=== PATIENT | female | born 1950 | race Caucasian/White ===

== ENCOUNTER 2017-10-30 09:53 | Outpatient (REF) | payer OTHER, SELFPAY ==
[2017-10-30 19:34] LABS: Anion Gap 6.1 mmol/L (3-11); BUN 12 mg/dL (7-18); CO2 29.9 mmol/L (21.0-32.0); CREATININE 0.71 mg/dL (0.55-1.02); Chloride 104 mmol/L (98-107); Glucose 84 mg/dL (70-100); Potassium 4.3 mmol/L (3.5-5.1); Sodium 140 mmol/L (136-145); TSH 5.98 uIU/mL (0.358-3.74)
== END 2017-10-30 09:54 ==
LOC: NCHCN 09:53
PROVIDERS: PCP Physician Assistant Medical; Visit Provider Physician Assistant Medical
DX: I10 Essential (primary) hypertension (principal); E03.9 Hypothyroidism, unspecified
CPT/HCPCS: 80048; 84443

== ENCOUNTER 2017-12-11 14:23 | Outpatient (REF) | payer OTHER, SELFPAY ==
[2017-12-11 20:00] LABS: TSH 0.86 uIU/mL (0.358-3.74)
== END 2017-12-11 14:43 ==
LOC: NCHCN 14:23
PROVIDERS: PCP Physician Assistant Medical; Visit Provider Physician Assistant Medical
DX: E03.9 Hypothyroidism, unspecified (principal)
CPT/HCPCS: 84443

== ENCOUNTER 2018-12-02 10:27 | Outpatient (REF) | payer OTHER, SELFPAY ==
[2018-12-02 20:18] LABS: Anion Gap 7.1 mmol/L (3-11); BUN 19 mg/dL (7-18); CO2 27.9 mmol/L (21.0-32.0); Calcium 9.2 mg/dL (8.5-10.1); Calculated LDL 64 mg/dL; Chloride 104 mmol/L (98-107); Cholesterol 142 mg/dL (50-200); Glucose 91 mg/dL (70-100); HDL Cholesterol 72 mg/dL (40-60); Potassium 4.7 mmol/L (3.5-5.1); Sodium 139 mmol/L (136-145); TSH 0.17 uIU/mL (0.36-3.74); Triglyceride 32 mg/dL (30-150)
== END 2018-12-02 10:47 ==
LOC: NCHCN 10:27
PROVIDERS: PCP Physician Assistant Medical; Visit Provider Nurse Practitioner Family
DX: E03.9 Hypothyroidism, unspecified (principal); I10 Essential (primary) hypertension; Z13.6 Encounter for screening for cardiovascular disorders
CPT/HCPCS: 80048; 80061; 84443

== ENCOUNTER 2018-12-03 08:54 | Outpatient (REF) | payer OTHER, SELFPAY ==
[2018-12-10 13:10] LABS: Helicobacter pylori Ag, Feces Negative (NEGAT)
== END 2018-12-03 09:14 ==
LOC: NCHCN 08:54
PROVIDERS: PCP Nurse Practitioner Family; Visit Provider Nurse Practitioner Family
DX: R10.9 Unspecified abdominal pain (principal)
CPT/HCPCS: 87338

== ENCOUNTER 2020-01-07 15:05 | Outpatient (REF) | payer OTHER, SELFPAY ==
[2020-01-07 22:46] LABS: Anion Gap 8.4 mmol/L (3-11); BUN 26 mg/dL (7-18); CO2 27.6 mmol/L (21.0-32.0); CREATININE 0.69 mg/dL (0.55-1.02); Calcium 9.7 mg/dL (8.5-10.1); Chloride 106 mmol/L (98-107); Glucose 88 mg/dL (74-106); Potassium 4.1 mmol/L (3.5-5.1); Sodium 142 mmol/L (136-145); TSH 3.67 uIU/mL (0.36-3.74)
== END 2020-01-07 15:25 ==
LOC: NCHCN 15:05
PROVIDERS: PCP Nurse Practitioner Family; Visit Provider Nurse Practitioner Family
DX: E03.9 Hypothyroidism, unspecified (principal); I10 Essential (primary) hypertension
CPT/HCPCS: 80048; 84443

== ENCOUNTER 2020-01-23 03:43 | Outpatient (CLI) | payer OTHER, SELFPAY ==
--- NOTE | 2020-01-23 | DI.RAD_ITS ---
EXAM: XR KNEE RT 3V AP,LAT,LOWELL CLINICAL HISTORY: RT KNEE PAIN,M25.569 TECHNIQUE: COMPARISON: CR XR KNEE LT 3V AP,LAT,LOWELL from 01/23/2020 FINDINGS: Three views were obtained. There is severe narrowing of the medial tibiofemoral cartilaginous joint space. Mild marginal osteophyte formation is noted at multiple sites. There is an osteophyte or loo se body projected anteriorly on the lateral view. No other significant bony abnormality seen. IMPRESSION: Degenerative changes most marked involving medial tibiofemoral joint. RADIATION DOSE DELIVERED: Total DLP
--- NOTE | 2020-01-23 | DI.RAD_ITS ---
EXAM: XR KNEE LT 3V AP,LAT,LOWELL CLINICAL HISTORY: LT KNEE PAIN,M25.569 TECHNIQUE: COMPARISON: No exams were available for comparison FINDINGS: Three views were obtained. There is severe narrowing of the medial tibiofemoral cartilaginous joint space with medial subluxation femur tibia. The subchondral bones show mild sclerosis. There is mild marginal osteophyte formation involving the joints of the knee. IMPRESSION: DJD predominantly involving medial tibiofemoral joint. RADIATION DOSE DELIVERED: Total DLP
== END 2020-01-23 04:03 ==
PROVIDERS: PCP Nurse Practitioner Family; Visit Provider Nurse Practitioner Family
DX: M25.562 Pain in left knee (principal); M25.561 Pain in right knee; M17.0 Bilateral primary osteoarthritis of knee
CPT/HCPCS: 73562

== ENCOUNTER → 2020-02-12 09:16 | Outpatient (BNVA) | payer OTHER, SELFPAY | PROVIDERS: PCP Nurse Practitioner Family; Referring Provider Nurse Practitioner Family; Visit Provider Student in an Organized Health Care Education/Training Program | DX: M17.12 Unilateral primary osteoarthritis, left knee (principal); M17.11 Unilateral primary osteoarthritis, right knee | CPT/HCPCS: 99203 ==

== ENCOUNTER → 2020-04-15 09:42 | Outpatient (BNVA) | payer OTHER, SELFPAY | PROVIDERS: PCP Nurse Practitioner Family; Referring Provider Nurse Practitioner Family; Visit Provider Student in an Organized Health Care Education/Training Program | DX: M17.11 Unilateral primary osteoarthritis, right knee (principal); M17.12 Unilateral primary osteoarthritis, left knee | CPT/HCPCS: 99214 ==

== ENCOUNTER 2020-07-26 11:39 | Outpatient (REF) | payer OTHER, SELFPAY ==
[2020-07-26 20:07] LABS: ALT 31 U/L (14-59); AST 11 U/L (15-37); Albumin 3.6 g/dL (3.4-5.0); Alkaline Phosphatase 68 U/L (46-116); Anion Gap 6.9 mmol/L (3-11); BUN 23 mg/dL (7-18); Bilirubin, Total 0.3 mg/dL (0.2-1.0); CO2 30.1 mmol/L (21.0-32.0); Chloride 107 mmol/L (98-107); Estimated GFR 54.81 (mL/min/1.73m2); Glucose 87 mg/dL (74-106); Potassium 4.4 mmol/L (3.5-5.1); Sodium 144 mmol/L (136-145); TSH (W/Ref FT4) 0.41 uIU/mL (0.36-3.74); Total Protein 6.3 g/dL (6.4-8.2)
== END 2020-07-26 11:40 | disposition home or self-care (01) ==
LOC: NCHCN 11:39
PROVIDERS: PCP Nurse Practitioner Family; Visit Provider Nurse Practitioner Family
DX: I10 Essential (primary) hypertension (principal); E03.9 Hypothyroidism, unspecified
CPT/HCPCS: 80053; 84443

== ENCOUNTER 2021-09-07 21:12 | Outpatient (REF) | payer OTHER, SELFPAY ==
[2021-09-07 21:48] LABS: Anion Gap 5.3 mmol/L (3-11); BUN 23 mg/dL (7-18); CO2 28.7 mmol/L (21.0-32.0); CREATININE 0.7 mg/dL (0.55-1.02); Calcium 8.8 mg/dL (8.5-10.1); Chloride 108 mmol/L (98-107); Glucose 94 mg/dL (74-106); Sodium 142 mmol/L (136-145); TSH (W/Ref FT4) 0.03 uIU/mL (0.36-3.74)
[2021-09-07 22:08] LABS: FREE T4 1.58 ng/dL (0.76-1.46)
== END 2021-09-07 21:13 | disposition home or self-care (01) ==
LOC: NCHCN 21:12
PROVIDERS: PCP Nurse Practitioner Family; Visit Provider Physician Assistant
DX: I10 Essential (primary) hypertension (principal); E03.9 Hypothyroidism, unspecified
CPT/HCPCS: 80048; 84439; 84443

== ENCOUNTER 2022-09-05 11:18 | Outpatient (REF) | payer MEDICARE, SELFPAY ==
[2022-09-05 19:30] LABS: HCT 36.9 % (36.0-46.0); MCH 29.9 pg (27.0-33.0); MCHC 32.5 % (32.0-36.0); MCV 92 fL (80-95); MPV 9.7 fL (8.0-11.0); Platelet Count 336 10^3/uL (130-400); RBC 4.02 10^6/uL (3.93-5.22); RDW 13.2 % (11.7-14.6); RDW-SD 44.6 fL; WBC 4.91 10^3/uL (4.4-10.8)
[2022-09-05 19:47] LABS: Hemoglobin A1C 5.6 % (<5.7)
[2022-09-05 20:04] LABS: Vitamin D 25 Total 25.4 ng/mL (30-100)
[2022-09-05 20:07] LABS: ALT 20 U/L (14-59); AST 8 U/L (15-37); Albumin 3.4 g/dL (3.4-5.0); Alkaline Phosphatase 78 U/L (46-116); Anion Gap 7.3 mmol/L (3-11); BUN 22 mg/dL (7-18); Bilirubin, Total 0.5 mg/dL (0.2-1.0); CO2 28.7 mmol/L (21.0-32.0); CREATININE 0.8 mg/dL (0.55-1.02); Calcium 9.1 mg/dL (8.5-10.1); Chloride 107 mmol/L (98-107); Cholesterol 170 mg/dL (<200); Estimated GFR 78.24 (mL/min/1.73m2); Glucose 91 mg/dL (74-106); HDL Cholesterol 86 mg/dL (40-60); Potassium 4.3 mmol/L (3.5-5.1); Sodium 143 mmol/L (136-145); Total Protein 6.3 g/dL (6.4-8.2); Vitamin B12 261 pg/mL (193-986)
[2022-09-05 20:24] LABS: Calculated LDL 79 mg/dL (<100); Triglyceride 26 mg/dL (<150)
== END 2022-09-05 11:19 | disposition home or self-care (01) ==
LOC: NCHCN 11:18
PROVIDERS: PCP Nurse Practitioner Family; Visit Provider Physician Assistant
DX: I12.0 Hypertensive chronic kidney disease with stage 5 chronic kidney disease or end stage renal disease (principal); Z68.39 Body mass index [BMI] 39.0-39.9, adult; I10 Essential (primary) hypertension; E03.9 Hypothyroidism, unspecified; M85.80 Other specified disorders of bone density and structure, unspecified site; Z98.84 Bariatric surgery status
CPT/HCPCS: 80053; 80061; 82306; 85027; 82607; 83036

== ENCOUNTER 2023-03-06 09:04 | Outpatient (REF) | payer MEDICARE, SELFPAY ==
--- OUTSIDE RECORDS SUMMARY | 2023-03-06 09:07 | XMS_ITS | Continuity of Care Document ---
Author Name Unknown Organization [facility] Address [address] [place] [address] Care Team Providers Care Stretching Machine Operator Name Role Phone Lisa Lau Primary Care Physician Encounter [facility] Date(s): 08/10/22 - 08/10/[address] [address] Discharge Disposition: Home or Self Care Attending Physician: Lisa Lau PA-C Admitting Physician: Lisa Lau PA-C Referring Physician: Lisa Lau PA-C Allergies, Adverse Reactions, Alerts Substance Reaction Severity Status povidone iodine topical Unknown Acti ve metroNIDAZOLE Urticaria Severe Active Immunizations Given and Recorded Vaccine Date Status Refusal Reason SARS-CoV-2 (COVID-19) mRNA-1273 vaccine 01/31/21 R ecorded SARS-CoV-2 (COVID-19) mRNA-1273 vaccine 07/05/20 R ecorded SARS-CoV-2 (COVID-19) mRNA-1273 vaccine 06/06/20 R ecorded Results Laboratory List Name Date Thyroid Stimulating Hormone 08/10/22 Most recent to oldest [Reference Range]: 1 TSH [0.358-3.740 mcIntlUnit/mL] 1.613 mc IntlUnit/mL (08/10/22 8:12 AM) Social History Social History Type Response Sex Female Patient Care team information Care Team Personnel Name: Lisa Lau PA-C Position: PowerChart View Only Member Role: Primary Care Physician Address: Address: [facility] [address], [place] [id number] [place] [address] Care Team Related Persons Name: SANDHYA LIMA
--- OUTSIDE RECORDS SUMMARY | 2023-03-06 09:07 | XMS_ITS | CCD ---
Author Name Unknown Address [address] [place] [address] [id number] Organization Unknown Address [address] [place] [address] [phone] Care Team Providers Care Senior Branch Manager Name Role Phone HÉCTOR JENKINS Attending Physician [phone] HÉCTOR JENKINS Rounding (Secondary) Physician [phone] Vital Signs Unknown or Not Available. Allergies Unknown or Not Available. Procedures Unknown or Not Available. History of Immunizations Unknown or Not Available. Problems Unknown or Not Available. Results Unknown or Not Available. Active Medications Unknown or Not Available. Medications Administered During Visit Unknown or Not Available. Encounters Encounter Diagnosis Diagnosis Code Start Date Idiopathic osteoarthritis [id number] 2022 Social History Unknown or Not Available. Patient Decision Aids Unknown or Not Available. Discharge Instructions You were admitted to [facility] on 08/08/2022 00:00 with a principal diagnosis of Bilateral primary osteoarthritis of knee You were discharged from [facility] on 08/08/2022 00:00 Should you have any questions prior to discharge, please contact a member of your healthcare team. If you have left the hospital and have any questions, please contact your primary care physician. Chief Complaint and Reason For Visit Unknown or Not Available. Function Status Unknown or Not Available. Plan of Care Unknown or Not Available. Referral/Transition of Care Unknown or Not Available.
--- OUTSIDE RECORDS SUMMARY | 2023-03-06 09:07 | XMS_ITS | Continuity of Care Document ---
Author Name Unknown Organization [facility] Address [address] [place] [address] Care Team Providers Care Director Adult Name Role Phone Lisa Lau Primary Care Physician Encounter [facility] Date(s): 04/21/22 - 04/21/[address] [address] Discharge Disposition: Home or Self Care Attending [...] SARS-CoV-2 (COVID-19) mRNA-1273 vaccine 06/06/20 R ecorded Social History Social History Type Response Sex Female Patient Care team information Personnel Name: Lisa Lau PA-C Address: Address: [address] [address]- [place]
--- OUTSIDE RECORDS SUMMARY | 2023-03-06 09:07 | XMS_ITS | Continuity of Care Document ---
Author Name Unknown Organization [facility] Address [address] [place] [address] Care Team Providers Care Premises Technician Name Role Phone Lisa Lau Primary Care Physician Encounter [facility] Date(s): 12/29/21 - 12/29/[address] [address] Discharge Disposition: Home or Self Care Attending Physician: Lisa Lau Admitting Physician: Lisa Lau Referring Physician: Lisa Lau Allergies, Adverse Reactions, Alerts Substance Reaction Severity Status povidone iodine topical Unknown Acti ve metroNIDAZOLE Urticaria Severe Active Immunizations Given and Recorded Vaccine Date Status Refusal Reason SARS-CoV-2 (COVID-19) mRNA-1273 vaccine 01/31/21 R ecorded SARS-CoV-2 (COVID-19) mRNA-1273 vaccine 07/05/20 R ecorded SARS-CoV-2 (COVID-19) mRNA-1273 vaccine 06/06/20 R ecorded Results Laboratory List Name Date TSH w/ Rflx to Free T4 12/29/21 Free T4 12/29/21 Most recent to oldest [Reference Range]: 1 T4 Free [0.76-1.46 ng/dL] 1.36 ng/dL (12/29/21 9:57 AM) TSH [0.358-3.740 mcIntlUnit/mL] 0.062 mc IntlUnit/mL *LOW* (12/29/21 9:57 AM) Social History Social History Type Response Sex Female Patient Care team information Personnel Name: Lisa Lau
--- OUTSIDE RECORDS SUMMARY | 2023-03-06 09:07 | XMS_ITS | CCD ---
Author Name Unknown Address [address] [place] [address] [phone] Organization Unknown Address [address] [place] [address] [phone] Care Team Providers Care Ventilating Equipment Installer Name Role Phone HÉCTOR JENKINS Attending Physician [phone] HÉCTOR JENKINS Rounding (Secondary) Physician [phone] Vital Signs Unknown or Not Available. Allergies Unknown or Not Available. Procedures Unknown or Not Available. History of Immunizations Unknown or Not Available. Problems Unknown or Not Available. Results Unknown or Not Available. Active Medications Unknown or Not Available. Medications Administered During Visit Unknown or Not Available. Encounters Encounter Diagnosis Diagnosis Code Start Date Idiopathic osteoarthritis [id number] 2022 Social History Unknown or Not Available. Patient Decision Aids Unknown or Not Available. Discharge Instructions You were admitted to [facility] on 12/08/2022 00:00 with a principal diagnosis of Bilateral primary osteoarthritis of knee You were discharged from [facility] on 12/08/2022 14:09 Should you have any questions prior to [...]
--- OUTSIDE RECORDS SUMMARY | 2023-03-06 09:07 | XMS_ITS | Continuity of Care Document ---
Author Name Unknown Organization [facility] Address [address] [place] [address] Care Team Providers Care Software Consultant Name Role Phone Lisa Lau Primary Care Physician Encounter [facility] Date(s): 02/14/22 - 02/14/[address] [address] Discharge Disposition: Home or Self Care Attending [...] Date TSH w/ Rflx to Free T4 02/14/22 Most recent to oldest [Reference Range]: 1 TSH [0.358-3.740 mcIntlUnit/mL] 0.829 mc IntlUnit/mL (02/14/22 11:39 AM) Social History Social History Type Response Sex Female Patient Care team information Personnel Name: Lisa Lau PA-C Address: Address: [facility] [address] [place] [address] [place]
[2023-03-06 19:33] LABS: TSH (W/Ref FT4) 5.47 uIU/mL (0.36-3.74)
[2023-03-06 19:51] LABS: FREE T4 1.64 ng/dL (0.76-1.46)
== END 2023-03-06 09:05 | disposition home or self-care (01) ==
LOC: NCHCN 09:04
PROVIDERS: PCP Nurse Practitioner Family; Visit Provider Physician Assistant
DX: E03.9 Hypothyroidism, unspecified (principal)
CPT/HCPCS: 84439; 84443

== ENCOUNTER 2023-09-05 10:55 | Outpatient (REF) | payer MEDICARE, SELFPAY ==
[2023-09-05 22:26] LABS: ALT 19 U/L (14-59); AST 7 U/L (15-37); Albumin 3.5 g/dL (3.4-5.0); Alkaline Phosphatase 77 U/L (46-116); Anion Gap 6.8 mmol/L (3-11); BUN 24 mg/dL (7-18); Bilirubin, Total 0.4 mg/dL (0.2-1.0); CO2 28.2 mmol/L (21.0-32.0); CREATININE 0.8 mg/dL (0.55-1.02); Calcium 9.2 mg/dL (8.5-10.1); Chloride 106 mmol/L (98-107); Estimated GFR 77.75 (mL/min/1.73m2); Glucose 89 mg/dL (74-106); Potassium 4.5 mmol/L (3.5-5.1); Sodium 141 mmol/L (136-145); TSH (W/Ref FT4) 2.85 uIU/mL (0.36-3.74); Total Protein 6.8 g/dL (6.4-8.2)
== END 2023-09-05 10:56 | disposition home or self-care (01) ==
LOC: NCHCN 10:55
PROVIDERS: PCP Nurse Practitioner Family; Visit Provider Physician Assistant
DX: I10 Essential (primary) hypertension (principal); E03.9 Hypothyroidism, unspecified
CPT/HCPCS: 80053; 84443

== ENCOUNTER 2023-11-19 13:59 | Outpatient (CLI) | payer MEDICARE, SELFPAY ==
--- NOTE | 2023-11-19 10:25 | DI.RAD_ITS ---
Exam(s) XR KNEE LT 4V AP,LAT,LOWELL,PAT EXAM: XR KNEE LT 4V AP,LAT,LOWELL,PAT CLINICAL HISTORY: knee pain. TECHNIQUE: 2D digital imaging was performed. COMPARISON: DX XR KNEE BILAT 4V* from 08/08/2022 CR XR KNEE RT 4V AP,LAT,LOWELL,PAT from 11/19/2023 FINDINGS: Four views There is no evidence of fracture. Small joint effusions noted. There is [id number] narrowing of t he medial compartment. Lateral compartment exhibits normal height. Some degenerative changes are al so evident in the medial aspect of the patellofemoral compartment. No loose bodies evident. IMPRESSION: Degenerative changes as above, most prominent in the medial compartment. Appears similar to July 2022 . DATA REPOSITORY: RADIATION DOSE DELIVERED:
--- NOTE | 2023-11-19 10:25 | DI.RAD_ITS ---
Exam(s) XR KNEE RT 4V AP,LAT,LOWELL,PAT EXAM: XR KNEE RT 4V AP,LAT,LOWELL,PAT CLINICAL HISTORY: knee pain. TECHNIQUE: 2D digital imaging was performed. COMPARISON: CR XR KNEE RT 3V AP,LAT,LOWELL from 01/23/2020 FINDINGS: Four views There is no evidence fracture. Small amount of increased joint fluid is noted. There is again noted and abnormal calcific density measuring 1.7 x 0.7 noted in the anterior intra-ar ticular Hoffa fat pad region, similar to previous. In addition, there is dwbw-pm-kzkr narrowing of t he medial compartment as seen on the weight-bearing view with some Verus deformity evident. There is also degenerative change in the lateral aspect of the patellofemoral compartment as seen to be mostl y on the merchant's sunrise view. IMPRESSION: Degenerative changes in the medial patellofemoral compartments is scribe above. Loose calcified body again noted. DATA REPOSITORY: RADIATION DOSE DELIVERED:
== END 2023-11-19 14:00 | disposition home or self-care (01) ==
LOC: DIORS 13:59
PROVIDERS: PCP Physician Assistant; Referring Provider Physician Assistant; Visit Provider Student in an Organized Health Care Education/Training Program
DX: M17.11 Unilateral primary osteoarthritis, right knee (principal); M17.12 Unilateral primary osteoarthritis, left knee
CPT/HCPCS: 20610; 99203; J1010; 73564

== ENCOUNTER 2024-02-07 01:49 | Outpatient (CLI) | payer MEDICARE, SELFPAY ==
[2024-02-07 15:24] LABS: HCT 36.5 % (36.0-46.0); MCH 30.1 pg (27.0-33.0); MCHC 32.9 % (32.0-36.0); MCV 92 fL (80-95); MPV 9.1 fL (8.0-11.0); Platelet Count 332 10^3/uL (130-400); RBC 3.99 10^6/uL (3.93-5.22); RDW 13.4 % (11.7-14.6); RDW-SD 45.3 fL; WBC 6.13 10^3/uL (4.4-10.8)
[2024-02-07 16:54] LABS: Anion Gap 7.9 mmol/L (3-11); BUN 23 mg/dL (7-18); CO2 28.1 mmol/L (21.0-32.0); CREATININE 1.2 mg/dL (0.55-1.02); Calcium 9.4 mg/dL (8.5-10.1); Chloride 106 mmol/L (98-107); Glucose 94 mg/dL (74-106); Potassium 4.5 mmol/L (3.5-5.1); Sodium 142 mmol/L (136-145)
== END 2024-02-07 01:50 | disposition home or self-care (01) ==
LOC: LBO 01:49
PROVIDERS: PCP Physician Assistant; Visit Provider Student in an Organized Health Care Education/Training Program
DX: M25.561 Pain in right knee (principal); M17.11 Unilateral primary osteoarthritis, right knee; Z01.818 Encounter for other preprocedural examination; Z01.812 Encounter for preprocedural laboratory examination
CPT/HCPCS: 36415; 80048; 85027; 99024

== ENCOUNTER 2024-02-07 14:34 | Outpatient (CLI) | payer MEDICARE, SELFPAY ==
--- NOTE | 2024-02-07 14:32 | DI.RAD_ITS ---
Exam(s) XR STANDING ALIGNMENT EXAM: XR STANDING ALIGNMENT CLINICAL HISTORY: OA R KNEE. TECHNIQUE: 2D digital imaging was performed. Four images were obtained. COMPARISON: CR XR KNEE RT 4V AP,LAT,LOWELL,PAT from 11/19/2023 CR XR KNEE LT 4V AP,LAT,LOWELL,PAT from 11/19/2023 FINDINGS: BONES: The hips are well maintained. In the right knee there is moderate narrowing of the medial fem oral tibial joint. There osteophytes seen in the lateral femoral tibial joint. In the left knee, th ere is marked narrowing of the medial femoral tibial joint space. The ankles are well maintained.The re is no significant leg length discrepancy. SOFT TISSUE: Normal. IMPRESSION: Osteoarthritis of the knees bilaterally. DATA REPOSITORY: RADIATION DOSE DELIVERED:
== END 2024-02-07 14:35 | disposition home or self-care (01) ==
LOC: DIORS 14:34
PROVIDERS: PCP Physician Assistant; Visit Provider Physician Assistant
DX: M17.11 Unilateral primary osteoarthritis, right knee (principal); Z01.818 Encounter for other preprocedural examination
CPT/HCPCS: 77073

== ENCOUNTER 2024-02-20 06:02 | Day surgery (SDC) | payer MEDICARE, SELFPAY ==
[2024-02-20] VITALS (26 sets, daily range): BP systolic 76–149; BP diastolic 33–63; PULSE 59–71; RESP 9–19; TEMP 36.1–36.7; O2SAT 97–100; BMI 39.0
[2024-02-20] MEDS: Gabapentin 300 MG CAP PO (06:42)
[2024-02-20] MEDS: Celecoxib 200 MG CAP 400 MG PO (06:42)
[2024-02-20] MEDS: Acetaminophen 500 MG TAB 1000 MG PO (06:42)
--- NOTE | 2024-02-20 07:06 | W.ANESPRE ---
General Info Date of Service Date Performed: 02/20/24 Height: 5 ft 4 in Weight: 103.3 kg Body Mass Index (BMI): 39.0 Surgical Procedure: Operation Date: 02/20/24 07:40 Proposed Procedure Side Surgeon p Knee Total Arthroplasty, Cementless CR Right Odilon Gaytan MD Meds Allergies and Home Medications Allergies Allergy/AdvReac Type Severity Reaction Status Date / Time metronidazole (From Flagyl) Allergy Severe severe Verified 02/15/24 11:24 hives Home Medication ?Medication ?Instructions ?Recorded celecoxib 200 mg capsule See Rx Instructions .Route 07/05/21 .COMPLEX #180 caps cholecalciferol (vitamin D3) 25 25 mcg PO DAILY 09/12/23 mcg (1,000 unit) capsule cyanocobalamin (vitamin B-12) 1,000 mcg PO DAILY 09/12/23 1,000 mcg/15 mL oral liquid hydrochlorothiazide 25 mg tablet 25 mg PO DAILY 09/12/23 levothyroxine 137 mcg tablet 137 mcg PO DAILY 09/12/23 (Synthroid) lisinopril 10 mg tablet 10 mg PO DAILY 09/12/23 omeprazole 20 mg capsule,delayed 20 mg PO DAILY 09/12/23 release raloxifene 60 mg tablet 60 mg PO DAILY 09/12/23 hydroxychloroquine 200 mg tablet 200 mg PO DAILY 02/07/24 Current Visit Medications: Current Medications Generic Name Dose Route Start Last Admin Trade Name Randyq PRN Reason Stop Dose Admin Acetaminophen 1,000 mg 02/20/24 06:00 02/20/24 06:42 Acetaminophen 500 Mg Tab PO 02/20/24 23:59 1,000 mg PREOP JAKE Administration Celecoxib 400 mg 02/20/24 06:00 02/20/24 06:42 Celecoxib 200 Mg Cap PO 02/20/24 23:59 400 mg PREOP JAKE Administration Gabapentin 300 mg 02/20/24 06:00 02/20/24 06:42 Gabapentin 300 Mg Cap PO 02/20/24 23:59 300 mg PREOP JAKE Administration Ringer's Solution 1,000 mls @ 80 mls/hr 02/20/24 06:00 IV 02/20/24 23:59 INFUSION JAKE Cefazolin Sodium/Dextrose 2 gm in 50 mls @ 100 mls/hr 02/20/24 06:00 Ancef Duplex IVPB 02/20/24 23:59 PREOP JAKE Tranexamic Acid 1,000 mg/ 110 mls @ 660 mls/hr 02/20/24 06:00 Sodium Chloride IVPB 02/20/24 23:59 PREOP JAKE IV Miscellaneous Supplies 1 each 02/20/24 06:00 Iv Access IV 02/20/24 23:59 DIRECTED JAKE Sodium Chloride 0 ml 02/20/24 06:00 Normal Saline Flush 10 Ml Syr IV 02/20/24 23:59 PRN PRN Sodium Chloride 0 ml 02/20/24 06:00 Normal Saline 10 Ml Vial IJ 02/20/24 23:59 DIRECTED PRN Sterile Water 0 ml 02/20/24 06:00 Water,Injection,Sterile 10 Ml Vial IJ 02/20/24 23:59 DIRECTED PRN PFSH Active Problems Active Problems: Problem Status Onset Code Osteopenia Acute M85.80 Rheumatoid arthritis Chronic M06.9 Essential hypertension Acute I10 Glaucoma Chronic H40.9 Obesity Chronic E66.9 Hypothyroidism Chronic E03.9 Degenerative joint disease of right knee Chronic M17.11 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 Medical History Medical History Hearing loss Surgical History Surgical History H/O bariatric surgery Hx of hernia repair History of History of cholecystectomy Hx of hysterectomy Tobacco Smoking/Tobacco Use Status: Never Alcohol Alcohol Intake: never Substance Use Substance use: Never Substance use type: does not use Vital Signs and Lab Results Vital Signs Most Recent Vital Signs in EMR: Most Recent Vital Signs Temp Pulse Resp BP Pulse Ox 36.5 C 68 16 121/52 L 97 02/20/24 06:15 02/20/24 06:15 02/20/24 06:15 02/20/24 06:15 02/20/24 06:15 Lab Results Blood Type / Crossmatch: No Data to Display Complete Blood Count: White Blood Count 6.13 10^3/uL (4.4-10.8) 02/07/24 15:19 Red Blood Count 3.99 10^6/uL (3.93-5.22) 02/07/24 15:19 Hemoglobin 12.0 g/dL (11.2-15.7) 02/07/24 15:19 Hematocrit 36.5 % (36.0-46.0) 02/07/24 15:19 Platelet Count 332 10^3/uL (130-400) 02/07/24 15:19 Complete Metabolic Panel: Sodium 142 mmol/L (136-145) 02/07/24 15:19 Potassium 4.5 mmol/L (3.5-5.1) 02/07/24 15:19 Chloride 106 mmol/L (98-107) 02/07/24 15:19 Carbon Dioxide 28.1 mmol/L (21.0-32.0) 02/07/24 15:19 BUN 23 mg/dL (7-18) H 02/07/24 15:19 Creatinine 1.2 mg/dL (0.55-1.02) H 02/07/24 15:19 Est GFR (CKD-EPI 2020) 47.50 (mL/min/1.73m2) 02/07/24 15:19 Calcium 9.4 mg/dL (8.5-10.1) 02/07/24 15:19 Glucose 94 mg/dL (74-106) 02/07/24 15:19 Liver Function Panel: No Data to Display Coagulation Panel: No Data to Display Cardiac Panel: No Data to Display Arterial Blood Gas: No Data to Display Venous Blood Gas: No Data to Display Pancreas Panel: No Data to Display Thyroid Panel: No Data to Display Infectious Disease: No Data to Display Blood Cultures: No Data to Display Toxicology Panel: No Data to Display Anesthesia Assessment and Plan Anesthesia History Personal History: No History of Anesthesia Complications Family History: No Family History of Anesthesia Complications Exercise Tolerance Exercise Tolerance: Metabolic Equivalents>4 Pertinent Negatives Pertinent Negatives: No Symptoms of GERD, No Major Cardiovascular Symptoms or Complaints, No Major Pulmonary Symptoms or Complaints and No History of CVA/TIA Cardiac & Pulmonary Exam Cardiac Exam: Normal S1/S2 Heart Sounds Pulmonary Exam: Clear Bilateral Breath Sounds Implantable Cardiac Device Does patient have a Pacemaker or an ICD?: No Airway Exam Known Difficult Airway: No Mallampati Class: 1 Mouth Opening: Normal (> 3cm) Thyromental Distance: Greater than 3 cm Neck Range of Motion: Full ROM Neck Circumference: Thick Teeth Condition: Normal Dentition ASA Classification ASA Score: ASA 2 Emergency Case?: No NPO Status NPO Status: NPO Clears >2 hours, Solids >8 hours Anesthesia Plan Resuscitation Status: Full Code Anesthesia Technique: Spinal Anesthesia Airway Planned: Natural Airway Pain Management: Surgeon and patient request nerve block Monitors Used: Standard Monitors
[2024-02-20] MEDS: Normal Saline 1,000 ML 80 ML IV (07:08)
--- NOTE | 2024-02-20 07:14 | PDOC.DSDIS_ITS ---
Date of service: 02/20/24 Discharge Plan Disposition Patient Disposition: Home Condition: Good Discharge Details Reason For Visit: R TKR Attending Provider: Odilon Gaytan Primary Care Provider: Lisa Lau Home Meds and New Rx's Prescriptions: New acetaminophen 500 mg tablet 1,000 mg PO TID Qty: 90 3RF aspirin 81 mg tablet,delayed release (DR/EC) 81 mg PO BID Qty: 60 0RF celecoxib 200 mg capsule 200 mg PO BID Qty: 60 0RF dexamethasone 4 mg tablet 4 mg PO DAILY Qty: 2 0RF gabapentin 300 mg capsule 300 mg PO QHS Qty: 14 0RF oxycodone 5 mg tablet 5 mg PO Q4H MDD 6 tabs PRN (Reason: pain) Qty: 20 0RF Continued cyanocobalamin (vitamin B-12) 1,000 mcg/15 mL liquid 1,000 mcg PO DAILY hydrochlorothiazide 25 mg tablet 25 mg PO DAILY lisinopril 10 mg tablet 10 mg PO DAILY omeprazole 20 mg capsule,delayed release(DR/EC) 20 mg PO DAILY raloxifene 60 mg tablet 60 mg PO DAILY levothyroxine [Synthroid] 137 mcg tablet 137 mcg PO DAILY cholecalciferol (vitamin D3) 25 mcg (1,000 unit) capsule 25 mcg PO DAILY hydroxychloroquine 200 mg tablet 200 mg PO DAILY Discontinued celecoxib 200 mg capsule See Rx Instructions .ROUTE .COMPLEX Qty: 180 3RF Dose Instruction: TAKE 1 CAPSULE TWICE A DAY NEEDED FOR PAIN Rx Instructions: TAKE 1 CAPSULE TWICE A DAY NEEDED FOR PAIN Discharge Instructions Additional Instructions: Total Knee Discharge Instructions Activity: The most important activity is to walk and to work on gentle motion (both flexion and extension). You should try to take short walks a few times a day. It is important that when resting you work on keeping the knee straight. Avoid putting a pillow behind the knee as this will encourage flexion. Work on range of motion exercises as provided by Physical Therapy. - Start outpatient physical therapy within 2 weeks. - You should wear the BOB hose on both legs for 2 weeks. You may remove these at night. You may also use any compression sock in place of the BOB hose. - Utilize [employer] to review exercises, see videos on exercises and obtain basic information pertaining to your surgery and your recovery. Dressing: Remove the Adis wrap by 2 days after your surgery and put on the BOB stocking given to you from the hospital. Keep the surgical dressing (underneath the ADIS wrap) in place for at least one week. After the first week it may be removed and replaced with light gauze and tape or nothing. The wound and dressing may get wet after 3 days but avoid soaking the dressing or otherwise it will need to be changed. Many people prefer covering the dressing with cling wrap (saran wrap) to minimize it from getting soaked. If it gets wet, just pat dry. If it starts to peel off then it will need to be changed. Medications: - You should take Tylenol and anti-inflammatory Celebrex as your primary pain control medications. If the Celebrex is too expensive or not covered, please call the office for another alternative (Advil/Ibuprofen or Naproxen/Aleve) - You have been prescribed a stronger pain medication Oxycodone for breakthrough pain, take as needed as prescribed. - You will continue your omeprazole to help reduce stomach acid and reflux. - You have been prescribed Gabapentin to take at night for restlessness and nerve pain. - You will be taking Aspirin 81mg twice a day for DVT prevention unless instructed otherwise. - You have also been prescribed Decadron to take to control post-operative nausea and pain. You will start this tomorrow. - If you have constipation you should take Colace or Miralax (both [id number]). It takes most people 3-4 days to have a bowel movement. Follow-up: 2 weeks If you have any acute concerns or questions, please do not hesitate to contact the office at [phone]. You may contact Dr. Gaytan with any questions after hours through the hospital at [phone] or on his cell phone at [phone]. Referrals: Odilon Gaytan MD [ [facility] STAFF PHYSICIAN] - Equipment/Supplies: Walker Activity:: Activity as Tolerated Shower/Bathe:: 72 hours Diet:: As Tolerated Discharge Orders Discharge Orders: Discharge Order (Routine); Ordered 02/20/24 Ordered By: Jitendra Saleem DS: Diagnosis Discharge Diagnosis (1) Degenerative joint disease of right knee: Status: Chronic
[2024-02-20] MEDS: ceFAZolin 2 GM/50 ML BAG IVPB (07:32)
--- NOTE | 2024-02-20 08:38 | ANES.NERVE_ITS ---
Nerve Block Single Injection Procedure Date and Time Date Performed: 02/20/24 Procedure Start: 07:17 Location Where Procedure Performed Procedure Location: Day Surgery Unit Reason Performed: Postoperative Analgesia Requesting Provider: Odilon Gaytan Timeout Performed Timeout Performed: Yes Monitoring Used ECG, Blood Pressure and SpO2 Sterility Sterility: Hand Hygiene, Surgical Cap, Surgical Mask, Sterile Gloves and Chlorhexidine Sedation Given During Procedure Sedation Given (Indicate Dose Given): No Sedation given Patient Mental Status Patient Mental Status: Awake Nerve Block 1st Nerve Block: Laterality: Right Block Type: Adductor Canal Ultrasound Image Saved?: Yes Needle / Catheter Used: 100mm SonoPlex II Local Anesthetic Bolus (Indicate Dose Given): Lidocaine used for local infiltration of skin, Injected in 3-5ml increments after negative blood aspiration and Bupivacaine 0.25% Dose:: 10 mL Additives (Indicate Dose Given): None Ultrasound: Sterile probe cover and gel used Nerve Stimulator: Supplement to Ultrasound use and No twitch or parast hesia noted < 0.5 mA Paresthesia: None Procedure Tolerated: No Complications Procedure Outcome: Successful Procedure Comment: Prior to the block introductions where made. Risk of regional anesthesia discussed including but not limited to infection, damage to blood vessels, nerve injury (1:5000), local anesthesia toxicity, block failure. Performed By: Valdo Villalpando
[2024-02-20] MEDS: HYDROmorphone 1 MG/ML SYR IVP ×2 (09:30→09:40)
[2024-02-20] MEDS: oxyCODONE 5 MG TAB PO (10:22)
--- NOTE | 2024-02-20 10:59 | IN_ITS ---
PT Notes Visit Reasons: R TKR Physical Therapy Day Surgery Initial Evaluation Date: 02/20/2024 Referring Doctor: TANIYA Zuñiga PT Orders: PT CONSULT: S/p Ortho Surgery Precautions: WBAT on the R LE with AD. Patient Profile/Admitting Diagnosis: Patient is a 73-year-old female with degenerative joint disease of the right knee and is status post right total knee arthroplasty on postoperative day 0. PMHX: Medical History (Updated 11/19/23 @ 12:44 by TANIYA Zuñiga) Hearing loss Social History/Home Situation: Lives with camacho Lockwood in a private home. Indepdenetn with all mobility ADL prior to surgery although was increasingly hoding onto furnitures at home due to worsening arthritic issue in R knee. Equipment Owned/DME: [facility] Subjective: Denied headache, chest pain, and lightheadedness throughout session. Pain report decreased to 3/10 from 7/10 with mobility performance. Objective: General Observation: VERA wraps to right LE. Cryocuff to right knee. TEDS to left leg and foot. Mental Status: A and O x 4 Pain: 7/10 pre-PT; 3/10 with ambulation ROM: Right Lower Extremity: Hip flexion WFL. Hip abduction WFL. Knee flexion 20 degrees to 100 degrees. Knee extension -20 degrees ankle dorsiflexion WFL. Ankle plantarflexion WFL. Left Lower Extremity: Hip flexion WFL. Hip abduction WFL. Knee flexion WFL. Ankle dorsiflexion WFL. Ankle plantarflexion WFL. Strength: Right Lower Extremity: Hip flexors 4/5. Hip abductors 4/5. Knee flexors 3-/5. Knee extensors 3-/5. Ankle dorsiflexors 5/5. Ankle plantarflexors 5/5. Left Lower Extremity:Hip flexors 5/5. Hip abductors 5/5. Knee flexors 5/5. Knee extensors 5/5. Ankle dorsiflexors 5/5. Ankle plantarflexors 5/5. Sensation: Inatct as to pain and light pressure in B LE Bed Mobility/Transfers: Minimal cueing provided for use of B hands as needed for support, movement sequence, AD management, and posture to reduce fall risk and minimize pain report Supine to sit stand by assist Sit to stand contact guard assist Stand to sit stand by assist Bed to chair stand by assist Gait: Patient with a safe and correct performance of level surface ambulation covering a distance of 150 feet using front wheeled walker with reciprocal step through heel-toe gait pattern requiring only standby assist and minimal verbal cueing for limb movement sequence, correct weight distribution/AD management, and posture to minimize pain report and reduce fall risk. Stairs: Guided patient with safe and correct negotiation of 2 x 6 inch steps and 3 x 4 inch steps while holding onto bilateral rails with step to gait pattern requiring only standby assist and minimal verbal cueing for limb movement sequence, hand placement, and increased knee flexion on the right during each assessment to minimize pain reported reduce fall risk. Balance: Static Sitting: Normal Dynamic Sitting: Normal Static Standing: Fair Dynamic Standing: Fair Special Tests: Mobility Limitations Standardized Measure [facility] 6 clicks Basic Mobility Inpatient Short Form: Raw Score: 22 CMS Score: 21% defcit Informed Consent/Education: Patient instructed in purpose of PT consult. Packet containing TKA exercise protocol has been given to patient. Education and training on initial set of exercises that can be done at home have been completed with patient. Trained patient with correct performance of exercises below to maximize motor control, joint flexibility, soft tissue extensibility of the R knee musculatu re: Access Code: [email or web address] URL: [email or web address] Date: 02/19/2023 Prepared by: Alyssa Power Exercises - Supine Quad Set - 1 x daily - 7 x weekly - 1 sets - 10 reps - 5 hold - Supine Heel Slide - 1 x daily - 7 x weekly - 1 sets - 10 reps - 5 hold - Supine Ankle Pumps - 1 x daily - 7 x weekly - 1 sets - 10 reps - 5 hold - Small Range Straight Leg Raise - 1 x daily - 7 x weekly - 1 sets - 10 reps - 5 hold - Seated March - 1 x daily - 7 x weekly - 1 sets - 10 reps - 5 hold Assessment: Patient requires the use of a front wheeled walker for mobility ADL performance to maximize independence and reduce fall risk at home.Patient presents with clinical signs and symptoms consistent with current/admitting diagnoses that have resulted to mobility limitations, gait instability, generalized weakness, and impairment of motor control as demonstrated by the following impairment level findings: 1. Decreased strength to right knee major muscle groups 2. Impaired standing balance 3. Limitation of joint range of motion in right knee Impairments are contributing to the following functional limitations: 1. Inability to safely ambulate without assistive device 2. Increase completion time for mobility ADL performance 3. Increased fall risk Patient is assessed as a 83929 moderate complexity based on the following: History: 73-year-old female with impairment level findings, functional limitations, and past medical history as indicated above Examination: Demonstrable impairment in strength, balance, and mobility level with underlying impairments and functional limitations as documented above Presentation: Evolving Decision Makin moderate complexity Goals: N/A. PT evaluation and 1-2 treatment sessions only for functional mobility training using recommended AD and for HEP instruction. Plan of Care/Treatment Plan: N/A. PT evaluation and 1-2 treatment session only for functional mobility training using recommended AD and for HEP instruction. DISCHARGE RECOMMENDATIONS: Home when medically cleared by orthopedic surgeon. Recommend outpatient PT services in order to optimize functional mobility outcomes and facilitate return to independent community ambulation without an assistive device. TREATMENT CODE/TIME: 99087 x 20 minutes for 1 unit, 31673 x 13 minutes for 1 unit (10: 59?11: 32). Thank you for the opportunity to participate in the care of this patient. Please sign an return this page within 30 days if you agree with the above POC. Thank you! Physician Signature Date [facility] Alyssa Power PT, DPT, CLT [facility] [place], [place]
--- NOTE | 2024-02-20 12:10 | W.ANESPOSTOP ---
Postoperative Evaluation Date, Time and Location Date Performed: 02/20/24 Time Performed: 12:10 Patient Location: Day Surgery Unit Vital Signs Most Recent Imported Vital Signs: Most Recent Vital Signs Temp Pulse Resp BP Pulse Ox 36.2 C L 68 15 126/55 L 97 02/20/24 10:35 02/20/24 10:35 02/20/24 10:35 02/20/24 10:35 02/20/24 10:35 Pain Score Most Recent Pain Score: Most Recent Pain Score Pain Level 4 02/20/24 10:35 Assessment Mental Status: Awake (Alert & Oriented to Patient Baseline) Airway and Respiratory Function: Patent airway with normal (patient baseline) respiratory exam Cardiovascular Function: Hemodynamically Stable Hydration Status: Adequately Hydrated Nausea & Vomiting: No Nausea or Vomiting Pain: Pain is tolerable per patient (mid thigh discomfort only) Peripheral Nerve Block: Regional nerve block not resolved at time of post operative discharge
--- NOTE | 2024-02-20 14:33 | ROE_ITS ---
Operative Note Operative Note PRE-OP DIAGNOSIS: Right Knee Osteoarthritis POST-OP DIAGNOSIS: same PROCEDURE: Right Total Knee Replacement SURGEON: Odilon Gaytan ANESTHESIA TYPE: Spinal Refer to Anesthesia Record ESTIMATED BLOOD LOSS: 150 PATHOLOGY: none sent TOURNIQUET TIME: 0 COMPLICATIONS: None Patient was transported to: PACU Patient's condition: stable Implants: 1. Depuy Attune Cementless Cruciate Retaining Femoral Component, Size 5 2. Depuy Attune Cementless Fixed Bearing Tibial Component, Size 4 3. Depuy Attune 5x8mm CR/FB Poly 4. Depuy Attune Patellar Component, Size 35 Indications: I have seen Meghna in clinic for symptoms of knee arthritis, confirmed with radiographic findings. She has exhausted nonoperative methods and was having significant limitations in daily function and desired better function and less pain. I discussed the technical details of a knee replacement. I explained the risks of the procedure to include, but not limited to, bleeding, infection, pain, stiffness, fracture, damage to nerves and vessels, damage to muscles and tendons, loosening, need for repeat procedure, blood clot and cardiopulmonary demise. Despite these risks, Meghna elected to proceed. Findings: There was significant signs of arthritis throughout the knee. Procedure Description: Meghna was greeted in the preoperative holding area where the correct side was identified and marked. The consent was reviewed with the patient and signed. T he history and physical was updated. All questions were answered. Preoperative medications were administered: Acetaminophen 1000mg, Celebrex 400mg, and Gabapentin 300mg. An adductor canal block was then administered by the anesthesia team in the DSU. Meghna was taken back to the operating room. A spinal anesthestic was then administered. The patient was placed into the supine position on the operating room table. Posts were placed for positioning during the procedure. All bony prominences were well padded. Prophylactic antibiotics in the form of Cefazolin were administered. 1g of Tranxemic Acid was given intravenously within 30 minutes of incision. The right leg was then prepped with Chloraprep and draped in a standard fashion with impervious stockinette. A second prep with Chlora prep was performed prior to application of Iodine impregnated skin protection. A timeout to confirm correct identity, side and site, procedure, allergies, anesthesia, and medical concerns was performed. With the knee in some flexion, a midline incision was made overlying the knee. Full thickness skin flaps were raised once the extensor mechanism was encountered. These were raised medially and laterally. Any bleeding was controlled with electrocautery. Once the extensor mechanism was fully exposed, a medial parapatellar arthrotomy was performed in a flexed position. All bleeding from the arthrotomy and the geniculate arteries was coagulated. A medial subperiosteal peel was performed with electrocautery to the midcoronal plane. The fat pad was removed while keeping the patellar tendon protected. The anterior distal femur synovium was removed for later visualization. The ACL and PCL were resected and the anterior horn of the lateral meniscus was transected. The knee was then flexed with the patella everted. Large osteophytes from the tibia were removed. Large osteophytes from the femur were removed. Using a step drill, and based on preoperative templating, the femoral canal was entered. This was done with a step drill without any difficulty. The intramedullary distal femoral cut guide was inserted, set to a 5 degree valgus cut and 9mm cut thickness. The distal femoral cut guide was then held in position and pinned. With the soft tissues protected, the distal cut was performed. This was passed over a few times to ensure a planar cut. I then turned attention to the tibia. The extramedullary guide was placed onto the leg. The distal aspect was slid medial to adjust for position of center of ankle and stay in line with shaft of the tibia. Approximately 3-5 degrees of posterior slope was kept in the proximal cutting guide. The center of the guide was aligned with the PCL. The stylus was used to assess cut thickness. The medial side, most involved side, was set for a 4mm cut. This was then held in position and pinned into place with 2 additional pins and a cross pin for stability. The medial and lateral collateral ligaments were protected and the cut was performed. With this completed, it was assessed and noted to be of appropriate dimensions. The guide was removed. A spacer block was inserted and the knee was brought into extensi on. The 6mm spacer block provided full extension, without hyperextension and with stability of both the medial and lateral collateral ligaments was assessed. The pins from the femur and the tibia were then removed. The distal femur was then sized. The anterior stylus was placed onto the lateral ridge of the anterior femur. This indicated a size 5 femur. The external rotation of the guide was adjusted to 3 degrees to match the epicondylar axis, perpendicular to Francisco?s line. The 4-in-1 cutting guide was the placed. The posterior medial femur cut was evaluated and appeared of good thickness. The spacer block was inserted underneath the cutting guide and stability was confirmed in 90 degrees of flexion. An clement wing was used to confirm appropriate position of the anterior cut to avoid notching. This cutting guide was ensured to be flush on the cut surface and then pinned into place with headed pins. While protecting the soft tissues, quad tendon, and collateral ligaments, the anterior and posterior cuts were performed with a saw. The central two pins were removed and the posterior and anterior chamfers were cut next. The notch-cutting guide was placed. This was pinned to lateralize the femoral component as much as possible while keeping it flush on the cut surface. This was then pinned into position. A reciprocating saw was used to make the notch cut. A rasp smoothed the cut surfaces. The medial and lateral menisci were removed. A trial femoral component was then inserted, impacted down to the cut surfaces, and the lug holes were drilled. A provisional trial tibial component was placed and the knee was brought through range of motion. The polyethylene was trialed until there was good flexion and extension with excellent stability to the medial and lateral collaterals. The patella was tracking without thumbs. A size 8mm polyethylene component provided the best range of motion and stability with less than 2mm gapping with medial and lateral stress and full extension without significant hyperextension. The tibial cut surface was fully exposed. The tibia was then sized as a 4. The tibia had been previously marked during trialing to correspond to the center of the tibial component to help with rotation. The trial was aligned to this tony, approximately rotated to the medial 1/3rd of the tibial tubercle. The trial was pinned into place. The tibia was prepared with a reamer and a keel punch and lug holes. The knee was then brought into extension and the patella was measured as 23mm. Using the patellar clamp and cut guide, this was resected to a flat surface with at least 13mm of thickness remaining. The size 35 patella fit the best. This was oriented and then clamped into position. The lugs were drilled. The trial components were removed. The final components were opened on the back table. The periosteal and capsular tissues, especially posteriorly, around the knee were then systematically injected with a periarticular cocktail consisting of 246mg of Ropivacaine, 0.5mg of Epinephrine, 0.08mg of Clonidine, and 30mg of Ketorolac, diluted to 100cc. On the back table, with the implants opened, the cement was mixed. One batch of high viscosity cement was prepared with vacuum assistance. After the cement was ready a small amount was placed on the cut surface of the patella and the patellar button was clamped into position and held. While the cement was hardening, the cementless knee components were placed. Starting with the tibial component, the tibia was subluxed anteriorly and the lug holes of the component were lined up. The tibia was then impacted with an impactor and mallet until the tibial component was in contact with the tibia. The final polyethylene component was inserted. Then, the femoral component was inserted. The lug holes were aligned and the component was impacted into position. The knee was irrigated with Surgiphor Betadine solution. This was allowed to sit in the knee for 3 minutes and then it was irrigated out with saline. After the cement had finally cured, approximately 15min, the clamp was removed from the patella and the knee was taken through range of motion. The patella was tracking with a no-thumbs technique. The capsule was then reapproximated with a No. 1 Vicryl at multiple locations. The capsule was finally closed with a No. 2 Stratafix, barbed suture. The second dosing of 1g TXA was started. Deep tissues were then reapproximated with 0 Vicryl and 2-0 Vicryl. The skin was closed with a running 3-0 Monocryl in a subcuticular fashion. This was reinforced with skin glue. A Mepilex silver dressing was applied along with a [id number] VERA wrap. A CryoCuff was applied. Adriane was transferred to the hospital bed without difficulty an suffering no apparent complication. She has a good prognosis. Physical therapy will start today and without restrictions, weight-bearing as tolerated. Aspirin 81mg BID will be used for DVT prophylaxis. Date of Procedure: 02/20/24
== END 2024-02-20 12:10 | disposition home or self-care (01) ==
PROVIDERS: PCP Physician Assistant; Visit Provider Student in an Organized Health Care Education/Training Program
PROC: (CPT 27447; principal; 2024-02-20 07:30)
DX: M17.11 Unilateral primary osteoarthritis, right knee (principal); E03.9 Hypothyroidism, unspecified; E66.9 Obesity, unspecified; M06.9 Rheumatoid arthritis, unspecified; M85.80 Other specified disorders of bone density and structure, unspecified site; G89.18 Other acute postprocedural pain; M25.561 Pain in right knee
CPT/HCPCS: 27447; 64447; 97162; 97530; C1776; J0665; J0690; J1100; J1171; J1596; J2250; J2371; J2401; J2405; J2704; J3010

== ENCOUNTER 2024-03-06 11:33 | Outpatient (CLI) | payer MEDICARE, SELFPAY ==
--- NOTE | 2024-03-06 10:45 | DI.RAD_ITS ---
Exam(s) XR STANDING ALIGNMENT XR KNEE RT 1V EXAM: XR STANDING ALIGNMENT CLINICAL HISTORY: 1ST POST OP S/P R TKA. TECHNIQUE: 2D digital imaging was performed. Standing AP views were performed from the pelvis throu gh the ankles. COMPARISON: CR XR KNEE LT 4V AP,LAT,LOWELL,PAT from 11/19/2023 CR XR KNEE RT 4V AP,LAT,LOWELL,PAT from 11/19/2023 CR XR STANDING ALIGNMENT from 02/07/2024 CR XR KNEE RT 1V from 03/06/2024 FINDINGS: BONES: No acute fracture is present. No bony destructive lesion is seen. Leg length discrepancy: No significant overall leg length discrepancy. JOINTS: Knees: Patient is status post placement of a right total knee prosthesis. The alignment appe ars satisfactory. Severe degenerative changes are again noted of the left medial femoral tibial join t, causing prominent varus angulation. The ankle joints show mild degenerative changes. The hip joints are unremarkable. SOFT TISSUE: Mild soft tissue edema. IMPRESSION: Severe degenerative changes medial femoral tibial joint of the left knee. Satisfactory alignment of right knee prosthesis. No significant leg length discrepancy. DATA REPOSITORY: RADIATION DOSE DELIVERED:
== END 2024-03-06 11:34 | disposition home or self-care (01) ==
LOC: DIORS 11:34
PROVIDERS: PCP Physician Assistant; Referring Provider Physician Assistant; Visit Provider Physician Assistant
DX: Z96.651 Presence of right artificial knee joint (principal); Z47.1 Aftercare following joint replacement surgery
CPT/HCPCS: 99024; 73560; 77073

== ENCOUNTER → 2024-03-31 14:16 | Outpatient (BNVA) | payer MEDICARE, SELFPAY | PROVIDERS: PCP Physician Assistant; Referring Provider Physician Assistant; Visit Provider Student in an Organized Health Care Education/Training Program | DX: Z47.1 Aftercare following joint replacement surgery (principal); Z96.651 Presence of right artificial knee joint | CPT/HCPCS: 99024 ==

== ENCOUNTER → 2024-05-12 14:42 | Outpatient (BNVA) | payer MEDICARE, SELFPAY | PROVIDERS: PCP Physician Assistant; Referring Provider Physician Assistant; Visit Provider Student in an Organized Health Care Education/Training Program | DX: Z47.1 Aftercare following joint replacement surgery (principal); Z96.651 Presence of right artificial knee joint | CPT/HCPCS: 99024 ==

== ENCOUNTER 2024-07-30 14:31 | Outpatient (REF) | payer MEDICARE, SELFPAY ==
[2024-07-30 19:49] LABS: Abs Immature Grans 0.02 10^3/uL (0.0-0.06); Absolute Basophil Count 0.06 10^3/uL (0.0-0.2); Absolute Eosinophil Count 0.23 10^3/uL (0.0-0.7); Absolute Lymphocyte Count 1.56 10^3/uL (1.2-3.4); Absolute Monocyte Count 0.44 10^3/uL (0.1-0.8); Absolute Neutrophil Count 3.02 10^3/uL (1.2-6.7); Basophils % 1.1 %; Eosinophils % 4.3 %; HCT 33.7 % (36.0-46.0); HGB 10.7 g/dL (11.2-15.7); Immature Grans % 0.4 %; Lymphocytes % 29.3 %; MCH 29.5 pg (27.0-33.0); MCHC 31.8 % (32.0-36.0); MCV 93 fL (80-95); MPV 9.8 fL (8.0-11.0); Monocytes % 8.3 %; Neutrophils % 56.6 %; Platelet Count 358 10^3/uL (130-400); RBC 3.63 10^6/uL (3.93-5.22); RDW 12.7 % (11.7-14.6); RDW-SD 43.5 fL; WBC 5.33 10^3/uL (4.4-10.8)
[2024-07-30 20:06] LABS: ALT 15 U/L (14-59); AST 13 U/L (15-37); Albumin 3.6 g/dL (3.4-5.0); Alkaline Phosphatase 76 U/L (46-116); Anion Gap 4.9 mmol/L (3-11); BUN 23 mg/dL (7-18); Bilirubin, Total 0.3 mg/dL (0.2-1.0); CO2 29.1 mmol/L (21.0-32.0); CREATININE 0.8 mg/dL (0.55-1.02); Calcium 9.3 mg/dL (8.5-10.1); Chloride 108 mmol/L (98-107); Estimated GFR 77.27 (mL/min/1.73m2); Glucose 104 mg/dL (74-106); Potassium 4.3 mmol/L (3.5-5.1); Sodium 142 mmol/L (136-145); Total Protein 6.9 g/dL (6.4-8.2)
[2024-07-31 19:23] LABS: Hepatitis C Ab w Rflx HCV PCR Negative (Negative)
== END 2024-07-30 14:32 | disposition home or self-care (01) ==
LOC: NCHCN 14:31
PROVIDERS: PCP Physician Assistant; Visit Provider Physician Assistant
DX: Z01.818 Encounter for other preprocedural examination (principal)
CPT/HCPCS: 80053; 86803; 85025

== ENCOUNTER 2024-08-11 04:10 | Outpatient (CLI) | payer MEDICARE, SELFPAY | END 2024-08-11 04:11 | disposition home or self-care (01) | LOC: LBO 04:11 | PROVIDERS: PCP Physician Assistant; Visit Provider Student in an Organized Health Care Education/Training Program | DX: M17.12 Unilateral primary osteoarthritis, left knee (principal) | CPT/HCPCS: 99213 ==

== ENCOUNTER 2024-08-20 08:12 | Day surgery (SDC) | payer MEDICARE, SELFPAY ==
[2024-08-20] VITALS (21 sets, daily range): BP systolic 85–128; BP diastolic 25–71; PULSE 53–65; RESP 11–36; TEMP 36.1–36.7; O2SAT 95–100; BMI 40.3
--- NOTE | 2024-08-20 07:20 | PDOC.DSDIS_ITS ---
Date of service: 08/20/24 Discharge Plan Disposition Patient Disposition: Home Condition: Good Discharge Details Reason For Visit: L TKR Attending Provider: Odilon Gaytan Primary Care Provider: Lisa Lau Home Meds and New Rx's Prescriptions: New celecoxib 200 mg capsule 200 mg PO BID Qty: 60 0RF aspirin 81 mg tablet,delayed release (DR/EC) 81 mg PO BID Qty: 60 0RF acetaminophen 500 mg tablet 1,000 mg PO TID Qty: 90 3RF dexamethasone 4 mg tablet 4 mg PO DAILY Qty: 2 0RF docusate sodium 100 mg capsule 100 mg PO BID PRNQty: 28 0RF gabapentin 300 mg capsule 300 mg PO QHS Qty: 14 0RF oxycodone 5 mg tablet 5 mg PO Q4H PRNQty: 18 0RF Continued cyanocobalamin (vitamin B-12) 1,000 mcg/15 mL liquid 1,000 mcg PO DAILY hydrochlorothiazide 25 mg tablet 25 mg PO DAILY lisinopril 10 mg tablet 10 mg PO DAILY omeprazole 20 mg capsule,delayed release(DR/EC) 20 mg PO DAILY raloxifene 60 mg tablet 60 mg PO DAILY levothyroxine [Synthroid] 137 mcg tablet 137 mcg PO DAILY cholecalciferol (vitamin D3) 25 mcg (1,000 unit) capsule 25 mcg PO DAILY hydroxychloroquine 200 mg tablet 200 mg PO DAILY ascorbate calcium (vitamin C) 500 mg tablet 500 mg PO DAILY Discontinued acetaminophen 500 mg tablet 1,000 mg PO TID Qty: 90 3RF celecoxib 200 mg capsule 200 mg PO BID Qty: 60 0RF Discharge Instructions Additional Instructions: Total Knee Discharge Instructions Activity: The most important activity is to walk and to work on gentle motion (both flexion and extension). You should try to take short walks a few times a day. It is important that when resting you work on keeping the knee straight. Avoid putting a pillow behind the knee as this will encourage flexion. Work on range of motion exercises as provided by Physical Therapy. - Start outpatient physical therapy within 2 weeks. - You should wear the BOB hose on both legs for 2 weeks. You may remove these at night. You may also use any compression sock in place of the BOB hose. - Utilize [employer] to review exercises, see videos on exercises and obtain basic information pertaining to your surgery and your recovery. Dressing: Remove the Adis wrap by 2 days after your surgery and put on the BOB stocking given to you from the hospital. Keep the surgical dressing (underneath the ADIS wrap) in place for at least one week. After the first week it may be removed and replaced with light gauze and tape or nothing. The wound and dressing may get wet after 3 days but avoid soaking the dressing or otherwise it will need to be changed. Many people prefer covering the dressing with cling wrap (saran wrap) to minimize it from getting soaked. If it gets wet, just pat dry. If it starts to peel off then it will need to be changed. Medications: - You should take Tylenol and anti-inflammatory Celebrex as your primary pain control medications. If the Celebrex is too expensive or not covered, please call the office for another alternative (Advil/Ibuprofen or Naproxen/Aleve) - You have been prescribed a stronger pain medication Oxycodone for breakthrough pain, take as needed as prescribed. - You will continue your stomach acid reduction agent omeprazole to help reduce stomach acid and reflux. - You have been prescribed Gabapentin to take at night for restlessness and nerve pain. - You will be taking Aspirin 81mg twice a day for DVT prevention unless instructed otherwise. - You have also been prescribed Decadron to take to control post-operative nausea and pain. You will start this tomorrow. - If you have constipation you should take Colace or Miralax (both [id number]). It takes most people 3-4 days to have a bowel movement. Follow-up: 2 weeks If you have any acute concerns or questions, please do not hesitate to contact the office at [phone]. You may contact Dr. Gaytan with any questions after hours through the hospital at [phone] or on his cell phone at [phone]. Stand Alone Forms: Anesthesia Discharge Inst., [place].Nerve Block Instructions, Danilo Bray ([facility]U) Referrals: Odilon Gaytan MD [ [facility] STAFF PHYSICIAN] - 09/04/24 10:00 am Equipment/Supplies: Walker Activity:: Activity as Tolerated Shower/Bathe:: 72 hours Diet:: As Tolerated Discharge Orders Discharge Orders: Discharge Order (Routine); Ordered 08/20/24 Ordered By: Jitendra Saleem DS: Diagnosis Discharge Diagnosis (1) Left knee DJD: Status: Chronic
[2024-08-20] MEDS: Celecoxib 200 MG CAP 400 MG PO (09:00)
[2024-08-20] MEDS: Gabapentin 300 MG CAP PO (09:01)
[2024-08-20] MEDS: Acetaminophen 500 MG TAB 1000 MG PO (09:01)
[2024-08-20] MEDS: Lactated Ringers 1,000 ML 80 ML IV (09:16)
--- NOTE | 2024-08-20 09:28 | ANES.PREOP_ITS ---
General Info Date of Service Date Performed: 08/20/24 Height: 5 ft 3.5 in Weight: 104.9 kg Body Mass Index (BMI): 40.3 Surgical Procedure: o Operation Date: 08/20/24 11:25 Proposed Procedure Side Surgeon p Knee Total Arthroplasty, Cementless CR Left Odilon Gaytan MD Meds Allergies and Home Medications Allergies Allergy/AdvReac Type Severity Reaction Status Date / Time metronidazole (From Flagyl) Allergy Severe severe Verified 08/20/24 08:34 hives Home Medication ?Medication ?Instructions ?Recorded cholecalciferol (vitamin D3) 25 25 mcg PO DAILY 09/12/23 mcg (1,000 unit) capsule cyanocobalamin (vitamin B-12) 1,000 mcg PO DAILY 09/12/23 1,000 mcg/15 mL oral liquid hydrochlorothiazide 25 mg tablet 25 mg PO DAILY 09/12/23 levothyroxine 137 mcg tablet 137 mcg PO DAILY 09/12/23 (Synthroid) lisinopril 10 mg tablet 10 mg PO DAILY 09/12/23 omeprazole 20 mg capsule,delayed 20 mg PO DAILY 09/12/23 release raloxifene 60 mg tablet 60 mg PO DAILY 09/12/23 hydroxychloroquine 200 mg tablet 200 mg PO DAILY 02/07/24 ascorbate calcium (vitamin C) 500 500 mg PO DAILY 08/11/24 mg tablet acetaminophen 500 mg tablet 1,000 mg (2 x 500 mg) PO TID #90 08/20/24 tabs aspirin 81 mg tablet,delayed 81 mg PO BID #60 tabs 08/20/24 release celecoxib 200 mg capsule 200 mg PO BID #60 caps 08/20/24 dexamethasone 4 mg tablet 4 mg PO DAILY #2 tabs 08/20/24 docusate sodium 100 mg capsule 100 mg PO BID PRN #28 caps 08/20/24 gabapentin 300 mg capsule 300 mg PO QHS #14 caps 08/20/24 oxycodone 5 mg tablet 5 mg PO Q4H PRN #18 tabs 08/20/24 Current Visit Medications: Current Medications Generic Name Dose Route Start Last Admin Trade Name Freq PRN Reason Stop Dose Admin Acetaminophen 1,000 mg 08/20/24 06:00 08/20/24 09:01 Acetaminophen 500 Mg Tab PO 08/20/24 23:59 1,000 mg PREOP JAKE Administration Acetaminophen 1,000 mg 08/20/24 14:00 Acetaminophen 500 Mg Tab PO 09/19/24 13:59 TID PRN PRN Analgesia Celecoxib 400 mg 08/20/24 06:00 08/20/24 09:00 Celecoxib 200 Mg Cap PO 08/20/24 23:59 400 mg PREOP JAKE Administration Docusate Sodium 100 mg 08/20/24 07:19 Docusate Sodium 100 Mg Cap PO 09/19/24 07:18 BID PRN PRN Constipation Gabapentin 300 mg 08/20/24 06:00 08/20/24 09:01 Gabapentin 300 Mg Cap PO 08/20/24 23:59 300 mg PREOP JAKE Administration Ringer's Solution 1,000 mls @ 80 mls/hr 08/20/24 06:00 08/20/24 09:16 IV 08/20/24 23:59 80 mls/hr INFUSION JAKE Administration Cefazolin Sodium/Dextrose 2 gm in 50 mls @ 100 mls/hr 08/20/24 06:00 Ancef Duplex IVPB 08/20/24 23:59 PREOP JAKE Tranexamic Acid/Sodium Chloride 1,000 mg in 100 mls @ 600 mls/hr 08/20/24 06:00 IVPB 08/20/24 23:59 PREOP JAKE IV Miscellaneous Supplies 1 each 08/20/24 06:00 Iv Access IV 08/20/24 23:59 DIRECTED JAKE Ondansetron HCl 4 mg 08/20/24 07:19 Ondansetron 4 Mg/2 Ml Vial IVP 09/19/24 07:18 Q6H PRN PRN Nausea Oxycodone HCl 0 mg 08/20/24 07:19 Oxycodone 5 Mg Tab PO 09/19/24 07:18 Q3H PRN PRN Pain Polyethylene Glycol 17 gm 08/20/24 07:19 Polyethylene Glycol 3350 17 Gm Packet PO 09/19/24 07:18 BID PRN PRN Constipation Sodium Chloride 0 ml 08/20/24 06:00 Normal Saline Flush 10 Ml Syr IV 08/20/24 23:59 PRN PRN Sodium Chloride 0 ml 08/20/24 06:00 Normal Saline 10 Ml Vial IJ 08/20/24 23:59 DIRECTED PRN Sterile Water 0 ml 08/20/24 06:00 Water,Injection,Sterile 10 Ml Vial IJ 08/20/24 23:59 DIRECTED PRN PFSH Active Problems Active Problems: Problem Status Onset Code Osteopenia Acute M85.80 Rheumatoid arthritis Chronic M06.9 Essential hypertension Acute I10 Glaucoma Chronic H40.9 Obesity Chronic E66.9 Hypothyroidism Chronic E03.9 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 Medical History Medical History Hearing loss Surgical History Surgical History History of total right knee replacement (~02/20/24) H/O bariatric surgery Hx of hernia repair History of History of cholecystectomy Hx of hysterectomy Tobacco Smoking/Tobacco Use Status: Never Passive smoking exposure: No Alcohol Alcohol Intake: current Alcohol intake frequency: holidays/special occasions only Details: 1 per week Substance Use Substance use: Never Substance use type: does not use Vital Signs and Lab Results Vital Signs Most Recent Vital Signs in EMR: Most Recent Vital Signs Temp Pulse Resp BP Pulse Ox 36.7 C 61 16 128/52 L 99 08/20/24 08:44 08/20/24 08:44 08/20/24 08:44 08/20/24 08:44 08/20/24 08:44 Lab Results Blood Type / Crossmatch: No Data to Display Complete Blood Count: White Blood Count 5.33 10^3/uL (4.4-10.8) 07/30/24 14:20 Red Blood Count 3.63 10^6/uL (3.93-5.22) L 07/30/24 14:20 Hemoglobin 10.7 g/dL (11.2-15.7) L 07/30/24 14:20 Hematocrit 33.7 % (36.0-46.0) L 07/30/24 14:20 Platelet Count 358 10^3/uL (130-400) 07/30/24 14:20 Complete Metabolic Panel: Sodium 142 mmol/L (136-145) 07/30/24 14:20 Potassium 4.3 mmol/L (3.5-5.1) 07/30/24 14:20 Chloride 108 mmol/L (98-107) H 07/30/24 14:20 Carbon Dioxide 29.1 mmol/L (21.0-32.0) 07/30/24 14:20 BUN 23 mg/dL (7-18) H 07/30/24 14:20 Creatinine 0.8 mg/dL (0.55-1.02) 07/30/24 14:20 Est GFR (CKD-EPI 2020) 77.27 (mL/min/1.73m2) 07/30/24 14:20 Calcium 9.3 mg/dL (8.5-10.1) 07/30/24 14:20 Albumin 3.6 g/dL (3.4-5.0) 07/30/24 14:20 Glucose 104 mg/dL (74-106) 07/30/24 14:20 Liver Function Panel: Alanine Aminotransferase (ALT/SGPT) 15 U/L (14-59) 07/30/24 14: 20 Aspartate Amino Transf (AST/SGOT) 13 U/L (15-37) L 07/30/24 14: 20 Coagulation Panel: No Data to Display Cardiac Panel: No Data to Display Arterial Blood Gas: No Data to Display Venous Blood Gas: No Data to Display Pancreas Panel: No Data to Display Thyroid Panel: No Data to Display Infectious Disease: Hepatitis C Antibody Negative (Negative) 07/30/24 14:20 Blood Cultures: No Data to Display Toxicology Panel: No Data to Display Anesthesia Assessment and Plan Anesthesia History Personal History: No History of Anesthesia Complications Family History: No Family History of Anesthesia Complications Exercise Tolerance Exercise Tolerance: Metabolic Equivalents<4 Pertinent Negatives Pertinent Negatives: No Symptoms of GERD, No Major Cardiovascular Symptoms or Complaints, No Major Pulmonary Symptoms or Complaints and No History of CVA/TIA Cardiac & Pulmonary Exam Cardiac Exam: Normal S1/S2 Heart Sounds Pulmonary Exam: Clear Bilateral Breath Sounds and No cough or Cold Implantable Cardiac Device Does patient have a Pacemaker or an ICD?: No Airway Exam Known Difficult Airway: No Mallampati Class: 2 Mouth Opening: Normal (> 3cm) Thyromental Distance: Greater than 3 cm Neck Range of Motion: Full ROM Neck Circumference: Thick Teeth Condition: Normal Dentition ASA Classification ASA Score: ASA 3 Emergency Case?: No NPO Status NPO Status: NPO Clears >2 hours, Solids >8 hours Anesthesia Plan Resuscitation Status: Full Code Anesthesia Technique: Spinal Anesthesia Airway Planned: Natural Airway Pain Management: Surgeon and patient request nerve block Monitors Used: Standard Monitors
[2024-08-20] MEDS: ceFAZolin 2 GM/50 ML BAG IVPB (10:16)
--- NOTE | 2024-08-20 10:27 | ROE_ITS ---
Operative Note Operative Note PRE-OP DIAGNOSIS: Left Knee Osteoarthritis POST-OP DIAGNOSIS: same PROCEDURE: Left Total Knee Replacement SURGEON: Odilon Gaytan POULTRY PROCESSING SUPERVISOR: Tony Saleem ANESTHESIA TYPE: Spinal Refer to Anesthesia Record ESTIMATED BLOOD LOSS: 50 PATHOLOGY: none sent TOURNIQUET TIME: 0 COMPLICATIONS: None Patient was transported to: PACU Patient's condition: stable Implants: 1. Depuy Attune Cementless Cruciate Retaining Femoral Component, Size 6 Narrow 2. Depuy Attune Cementless Fixed Bearing Tibial Component, Size 6 3. Depuy Attune 6x7mm CR/FB Poly Indications: I have seen Adriane in clinic for symptoms of knee arthritis, confirmed with radiographic findings. She has exhausted nonoperative methods and was having significant limitations in daily function and desired better function and less pain. I discussed the technical details of a knee replacement. I explained the risks of the procedure to include, but not limited to, bleeding, infection, pain, stiffness, fracture, damage to nerves and vessels, damage to muscles and tendons, loosening, need for repeat procedure, blood clot and cardiopulmonary demise. Despite these risks, Adriane elected to proceed. Findings: There was significant signs of arthritis throughout the knee. Procedure Description: Adriane was greeted in the preoperative holding area where the correct side was identified and marked. The consent was reviewed with the patient and signed. The history and physical was updated. All questions were answered. Preoperative medications were administered: Acetaminophen 1000mg, Celebrex 400mg, and Gabapentin 300mg. An adductor canal block was then administered by the anesthesia team in the DSU. She was taken back to the operating room. A spinal anesthestic was then administered. The patient was placed into the supine position on the operating room table. Posts were placed for positioning during the procedure. All bony prominences were well padded. Prophylactic antibiotics in the form of Cefazolin were administered. 1g of Tranxemic Acid was given intravenously within 30 minutes of incision. The left leg was then prepped with Chloraprep and draped in a standard fashion with impervious stockinette. A second prep with Chloraprep was performed prior to application of Iodine impregnated skin protection. A timeout to confirm correct identity, side and site, procedure, allergies, anesthesia, and medical concerns was performed. With the knee in some flexion, a midline incision was made overlying the knee. Full thickness skin flaps were raised once the extensor mechanism was encountered. These were raised medially and laterally. Any bleeding was controlled with electrocautery. Once the extensor mechanism was fully exposed, a medial parapatellar arthrotomy was performed in a flexed position. All bleeding from the arthrotomy and the geniculate arteries was coagulated. A medial subperiosteal peel was performed with electrocautery to the midcoronal plane. The fat pad was removed while keeping the patellar tendon protected. The anterior distal femur synovium was removed for later visualization. The ACL and PCL were resected and the anterior horn of the lateral meniscus was transected. The knee was then flexed with the patella everted. Large osteophytes from the tibia were removed. Large osteophytes from the femur were removed. Using a step drill, and based on preoperative templating, the femoral canal was entered. This was done with a step drill without any difficulty. The intramedullary distal femoral cut guide was inserted, set to a 5 degree valgus cut and 8mm cut thickness. The distal femoral cut guide was then held in position and pinned. With the soft tissues protected, the distal cut was performed. This was passed over a few times to ensure a planar cut. I then turned attention to the tibia. The extramedullary guide was placed onto the leg. The distal aspect was slid medial to adjust for position of center of ankle and stay in line with shaft of the tibia. Approximately 5 degrees of posterior slope was kept in the proximal cutting guide. The center of the guide was aligned with the PCL. The stylus was used to assess cut thickness. The medial side, most involved side, was set for a 4mm cut. This was then held in position and pinned into place with 2 additional pins and a cross pin for stability. The medial and lateral collateral ligaments were protected and the cut was performed. With this completed, it was assessed and noted to be of appropriate dimensions. The guide was removed. A spacer block was inserted and the knee was brought into extension. The 6mm spacer block provided full extension, without hyperextension and with stability of both the medial and lateral collateral ligaments was assessed. The pins from the femur and the tibia were then removed. The distal femur was then sized. The anterior stylus was placed onto the lateral ridge of the anterior femur. This indicated a size 6 narrow femur. The external rotation of the guide was adjusted to 3 degrees to match the epicondylar axis, perpendicular to Francisco?s line. The 4-in-1 cutting guide was the placed. The posterior medial femur cut was evaluated and appeared of good thickness. The spacer block was inserted underneath the cutting guide and stability was confirmed in 90 degrees of flexion. An clement wing was used to confirm appropriate position of the anterior cut to avoid notching. This cutting guide was ensured to be flush on the cut surface and then pinned into place with headed pins. While protecting the soft tissues, quad tendon, and c ollateral ligaments, the anterior and posterior cuts were performed with a saw. The central two pins were removed and the posterior and anterior chamfers were cut next. The notch-cutting guide was placed. This was pinned to lateralize the femoral component as much as possible while keeping it flush on the cut surface. This was then pinned into position. A reciprocating saw was used to make the notch cut. A rasp smoothed the cut surfaces. The medial and lateral menisci were removed. A trial femoral component was then inserted, impacted down to the cut surfaces, and the lug holes were drilled. A provisional trial tibial component was placed and the knee was brought through range of motion. The polyethylene was trialed until there was good flexion and extension with excellent stability to the medial and lateral collaterals. The patella was tracking without thumbs. A size 7mm polyethylene component provided the best range of motion and stability with less than 2mm gapping with medial and lateral stress and full extension without significant hyperextension. The tibial cut surface was fully exposed. The tibia was then sized as a 4. The tibia had been previously marked during trialing to correspond to the center of the tibial component to help with rotation. The trial was aligned to this tony, approximately rotated to the medial 1/3rd of the tibial tubercle. The trial was pinned into place. The tibia was prepared with a reamer and a keel punch and lug holes. The trial components were removed. The final components were opened on the back table. The periosteal and capsular tissues, especially posteriorly, around the knee were then systematically injected with a periarticular cocktail consisting of 246mg of Ropivacaine, 0.5mg of Epinephrine, 0.08mg of Clonidine, and 30mg of Ketorolac, diluted to 100cc. On the back table, with the implants opened. The cementless knee components were placed. Starting with the tibial component, the tibia was subluxed anteriorly and the lug holes of the component were lined up. The tibia was then impacted with an impactor and mallet until the tibial component was in contact with the tibia. Then, the femoral component was inserted. The lug holes were aligned and the component was impacted into position. The knee was irrigated with Surgiphor Betadine solution. This was allowed to sit in the knee for 3 mi nutes and then it was irrigated out with saline. The patella was tracking with a no-thumbs technique. The capsule was then reapproximated with a No. 1 Vicryl at multiple locations. The capsule was finally closed with a No. 2 Stratafix, barbed suture. Deep tissues were then reapproximated with 0 Vicryl and 2-0 Vicryl. The skin was closed with a running 3-0 Monocryl in a subcuticular fashion. This was reinforced with skin glue. A Mepilex silver dressing was applied along with a [id number] VERA wrap. A CryoCuff was applied. Adriane was transferred to the hospital bed without difficulty an suffering no apparent complication. Adriane has a good prognosis. Physical therapy will start today and without restrictions, weight-bearing as tolerated. Aspirin 81mg BID will be used for DVT prophylaxis. Date of Procedure: 08/20/24
[2024-08-20] MEDS: TRANEXAMIC ACID/SOD. CHL. 1,000 MG/100 ML BAG 600 MG IVPB (10:42)
--- NOTE | 2024-08-20 10:54 | W.ANESNERVE ---
Nerve Block Single Injection Procedure Date and Time Date Performed: 08/20/24 Procedure Start: 09:51 Location Where Procedure Performed Procedure Location: Day Surgery Unit Reason Performed: Postoperative Analgesia Requesting Provider: Odilon Gaytan Timeout Performed Timeout Performed: Yes Monitoring Used ECG, Blood Pressure, SpO2 and See EMR for corresponding vital signs Sterility Sterility: Hand Hygiene, Surgical Cap, Surgical Mask, Sterile Gloves, Eye Protection and Chlorhexidine Sedation Given During Procedure Sedation Given (Indicate Dose Given): No Sedation given Patient Mental Status Patient Mental Status: Awake Nerve Block 1st Nerve Block: Laterality: Left Block Type: Adductor Canal Ultrasound Image Saved?: Yes Needle / Catheter Used: 100mm SonoPlex II Local Anesthetic Bolus (Indicate Dose Given): Lidocaine used for local infiltration of skin, Injected in 3-5ml increments after negative blood aspiration, Bupivacaine 0.25% Dose:: 10 ml and Exparel Dose:: 10 ml Additives (Indicate Dose Given): None Ultrasound: Sterile probe cover and gel used Nerve Stimulator: Supplement to Ultrasound use and No twitch or parasthesia noted < 0.5 mA Paresthesia: None Procedure Tolerated: No Complications and Patient tolerated well Procedure Outcome: Successful Performed By: David Mo Supervised By: Ruy Soto
[2024-08-20] MEDS: fentaNYL 100 MCG/2 ML VIAL IVP ×2 (12:20→12:37)
--- NOTE | 2024-08-20 13:30 | W.ANESPOSTOP ---
Postoperative Evaluation Date, Time and Location Date Performed: 08/20/24 Time Performed: 13:30 Patient Location: Day Surgery Unit Vital Signs Most Recent Imported Vital Signs: Most Recent Vital Signs Temp Pulse Resp BP Pulse Ox 36.1 C L 65 16 119/71 98 08/20/24 13:26 08/20/24 13:26 08/20/24 13:26 08/20/24 13:26 08/20/24 13:26 Pain Score Most Recent Pain Score: Most Recent Pain Score Pain Level 3 08/20/24 13:26 Assessment Mental Status: Awake (Alert & Oriented to Patient Baseline) Airway and Respiratory Function: Patent airway with normal (patient baseline) respiratory exam Cardiovascular Function: Hemodynamically Stable Hydration Status: Adequately Hydrated Nausea & Vomiting: No Nausea or Vomiting Pain: Pain is tolerable per patient Peripheral Nerve Block: Regional nerve block not resolved at time of post operative discharge Teaching Patient Teaching: Discussed Safe Use of Pain Medication Given Recent Anesthesia
[2024-08-20] MEDS: Tranexamic Acid 650 MG TAB 1300 MG PO (13:33)
[2024-08-20] MEDS: oxyCODONE 5 MG TAB PO (13:34)
--- NOTE | 2024-08-20 14:10 | PT.INIE ---
PT Notes Visit Reasons: L TKR Physical Therapy Day Surgery Initial Evaluation Date: 08/20/2024 Referring Doctor: Jitendra MONAHAN, Dr Gaytan PT Orders: PT CONSULT: s/p Ortho surgery Precautions: WBAT LLE with AD Patient Profile/Admitting Diagnosis: Pt is a 73 yo female presenting s/p elective L TKA under spinal anesthesia and nerve block Post op day 0. Post op uncomplicated. PMHX: History of total right knee replacement (Acute ~02/20/24) Osteopenia (Acute) Rheumatoid arthritis (Chronic) Essential hypertension (Acute) Glaucoma (Chronic) Obesity (Chronic) Hypothyroidism (Chronic) Left knee DJD (Chronic) Medical History Hearing loss Surgical History H/O bariatric surgery Hx of hernia repair History of History of cholecystectomy Hx of hysterectomy Social History/Home Situation: Pt resides with her in a 2 story home with ramp to enter. Pt independent with ADL, ambulation , meal prep, home management . able to assist as needed Equipment Owned/DME: FWW, versa frame over toilet, Cryo-Cuff Subjective:Pt reports she feels good and remembers all her exercises from the last time. Pt reports she will be staying on the first floor but does have a stair lift to the second floor where her bedroom is. Objective: [] General Observation: female semireclined on stretcher with ice to left knee, present Mental Status: A+Ox4, able to follow instructions, motivated cooperative. Agreeable to participate in evaluation Pain:1/10 ROM: [] Right Upper Extremity: WFL Left Upper Extremity: WFL Right Lower Extremity: WFL Left Lower Extremity: hip and ankle WFL knee 0-90 degrees Strength: [] Right Lower Extremity: Hip flexors 5/5. Hip abductors 5/5. Knee flexors 5/5. Knee extensors 5/5. Ankle dorsiflexors 5/5. Ankle plantarflexors 5/5. Left Lower Extremity: Hip flexors 3-/5. Hip abductors 3/5. Knee flexors 3-/5. Knee extensors 3-/5. Ankle dorsiflexors 5/5. Ankle plantarflexors 5/5. SLR with slight lag Sensation: intact to light touch and pain BLE Bed Mobility/Transfers: [] Supine to sit CGA with increased time for trunk Sit to stand supervision Stand to sit supervision Bed to chair with FWW supervision Gait: amb with FWW with supervision reciprocal pattern 50 feet including directional changes and narrow spaces Stairs simulated 2 steps with rail CGA step to pattern Balance: [] Static Sitting:Normal Dynamic Sitting:Good Static Standing: Good Dynamic Standing: Fair + Special Tests: [] Mobility Limitations Standardized Measure [] [facility] AM-PAC 6 clicks Basic Mobility Inpatient Short Form: [] Raw Score: 22 CMS Score: 20.91% Informed Consent/Education: Patient instructed in purpose of PT consult. Packet containing TKA exercise protocol has been given to patient. Education and training on initial set of exercises that can be done at home have been completed with patient. Assessment: Patient is a 73 yo female who presents with clinical signs and symptoms consistent with current/admitting diagnoses that have resulted to mobility limitations, gait instability, generalized weakness, and impairment of motor control as demonstrated by the following impairment level findings: 1. Decreased strength to left knee major muscle groups 2. Impaired standing balance 3. Limitation of joint range of motion in left knee 4. impaired functional activity tolerance Impairments are contributing to the following functional limitations: 1. Inability to safely ambulate without assistive device 2. Increase completion time for mobility ADL performance 3. Increased fall risk Patient is assessed as a lowcomplexity based on the following: History: 73-year-old female with impairment level findings, functional limitations, and past medical history as indicated above Examination: Demonstrable impairment in strength, balance, and mobility level with underlying impairments and functional limitations as documented above Presentation: stable Decision Making:low Goals: N/A. PT evaluation and 1-2 treatment sessions only for functional mobility training using recommended AD and for HEP instruction. Plan of Care/Treatment Plan: N/A. PT evaluation and 1-2 treatment session only for functional mobility training using recommended AD and for HEP instruction. DISCHARGE RECOMMENDATIONS: When medically appropriate per Surgeon Home with HEP and Outpatient PT as scheduled TREATMENT CODE/TIME: 18684/ [id number] Thank you for the opportunity to participate in the care of this patient. Jannette Johnson PT [facility]
== END 2024-08-20 14:09 | disposition home or self-care (01) ==
LOC: SUR 08:13
PROVIDERS: PCP Physician Assistant; Visit Provider Student in an Organized Health Care Education/Training Program
PROC: (CPT 27447; principal; 2024-08-20 11:15)
DX: M17.12 Unilateral primary osteoarthritis, left knee (principal); G89.18 Other acute postprocedural pain
CPT/HCPCS: 27447; 64447; 97161; C1776; J0665; J0666; J0690; J1100; J2003; J2250; J2371; J2401; J2405; J2704; J3010

== ENCOUNTER 2024-09-04 10:44 | Outpatient (CLI) | payer MEDICARE, SELFPAY ==
--- NOTE | 2024-09-04 10:00 | DI.RAD_ITS ---
Exam(s) XR STANDING ALIGNMENT EXAM: XR STANDING ALIGNMENT CLINICAL HISTORY: F/U LEFT TKA. TECHNIQUE: 2D digital imaging was performed. COMPARISON: CR XR STANDING ALIGNMENT from 03/06/2024 FINDINGS: 3 views There has been interval placement of a left knee prosthesis which appears satisfactory. There are now bilateral knee prostheses which both appear satisfactory. Hips appear unremarkable as do the ankles. Bone density normal. No osseous lesions. IMPRESSION: Satisfactory appearance. DATA REPOSITORY: RADIATION DOSE DELIVERED:
--- NOTE | 2024-09-04 10:00 | DI.RAD_ITS ---
Exam(s) XR KNEE LT 1V EXAM: XR KNEE LT 1V CLINICAL HISTORY: F/U LEFT TKA. TECHNIQUE: 2D digital imaging was performed. COMPARISON: CR XR KNEE RT 1V from 03/06/2024 FINDINGS: Single lateral view left knee Satisfactory position alignment of the components of the prosthesis. No fracture or loosening evident. IMPRESSION: Stable satisfactory appearance DATA REPOSITORY: RADIATION DOSE DELIVERED:
== END 2024-09-04 10:45 | disposition home or self-care (01) ==
LOC: DIORS 10:45
PROVIDERS: PCP Physician Assistant; Referring Provider Physician Assistant; Visit Provider Physician Assistant
DX: Z47.1 Aftercare following joint replacement surgery (principal); Z96.652 Presence of left artificial knee joint
CPT/HCPCS: 99024; 73560; 77073

== ENCOUNTER → 2024-10-02 10:07 | Outpatient (BNVA) | payer MEDICARE, SELFPAY | PROVIDERS: PCP Physician Assistant; Referring Provider Physician Assistant; Visit Provider Physician Assistant | DX: Z47.1 Aftercare following joint replacement surgery (principal); Z96.652 Presence of left artificial knee joint | CPT/HCPCS: 99024 ==